=== PATIENT | female | born 1970 | race Asian ===

== ENCOUNTER 2016-12-26 15:14 | Outpatient (CLI) | payer OTHER ==
[~2016-12-26 15:14] MED LIST: CHILD ASA LS81 MG PO; CLON1TAB18 PO; ESTRING2 MG PO; METFORMIN ER1000 MG PO; NEURONTIN 100M100 MG PO
== END 2016-12-26 19:27 | disposition home or self-care (01) ==
LOC: LABW 15:14
DX: M25.50 Pain in unspecified joint (principal)
CPT/HCPCS: 36415; 84550; 85651; 86039; 86140; 86431